=== PATIENT | male | born 2000 | race African-American/Black ===

== ENCOUNTER 2020-10-01 08:07 | Observation (INO) ==
[2020-10-01 09:07] LABS: Basophils # 0.1 10*3/uL (0.0-0.2); Basophils % 0.5 % (0.0-0.8); Eosinophils # 0.1 10*3/uL (0.0-0.87); Eosinophils % 0.5 % (0.00-10.9); Hematocrit 44.8 VOL% (42.0-52.0); Immature Granulocytes % 0.4 %; Immature Granulocytes Absolute 0.04 #; Lymphocytes % 19.3 % (21.2-54.2); Mean Corpuscular HGB Conc 33.5 GM/DL (32-36); Mean Corpuscular Volume 93.9 FL (87-102); Mean Platelet Volume 10.4 FL (9.6-12.0); Monocytes % 11.3 % (1.7-12.7); Platelet Count 222 T/CUMM (130-400); Red Blood Count 4.77 MC/CUMM (3.8-5.5); Red Cell Distribution Width 13.4 % (9.3-17.3); White Blood Count 10.3 T/CUMM (4-12)
[2020-10-01 09:34] LABS: Alanine Aminotransferase 44 U/L (16-61); Albumin 3.1 G/DL (3.4-5.0); Alkaline Phosphatase 43 U/L (45-117); Aspartate Amino Transferase 44 U/L (0-37); Blood Urea Nitrogen 8 MG/DL (7-18); Calcium 9.1 MG/DL (8.5-10.1); Carbon Dioxide 26 MMOL/L (21-32); Estimated Glom Filtration Rate 214 ML/MIN; Glucose 93 MG/DL (74-106); Osmolality,Calculated 267.1 MOS/KG (273-304); Potassium 3.6 MMOL/L (3.5-5.1); Sodium 135 MMOL/L (136-145); Total Protein 7.6 G/DL (6.4-8.2)
[2020-10-01 09:44] LABS: Bilirubin,Urine Negative (Negative); Blood, Urine Large mg/dL (Negative); Glucose,Urine (UA) Negative (Negative); Ketones,Urine Negative (Negative); Mucus,Urine Few /LPF (Occasional); Nitrite,Urine Negative (Negative); Protein,Urine 100 MG/DL; RBC,Urine 628 /HPF (0-4); Squamous Epithelial Cell,Urine Occasional /HPF (0-10); Urine Appearance CLEAR (Clear); Urine Color Amber (Yellow); Urine Specific Gravity 1.056 (1.001-1.035)
[2020-10-01 09:49] LABS: Band Neutrophils 3 % (0-10); Lymphocytes 21 % (20-55); Segmented Neutrophils 62 % (50-85); Total Cells Counted 100
[2020-10-01 09:50] LABS: Hypochromasia 1+; Microcytosis 1+; Platelet Estimate Normal
[2020-10-01 09:51] LABS: Atypical Lymphocytes Few
[2020-10-01 09:53] LABS: Barbiturates Screen,Urine Negative (Negative); Benzodiazepines Screen,Urine Negative (Negative); Cannabinoid Screen,Urine Positive (Negative); Opiate Screen,Urine Negative (Negative); Phencyclidine Screen,Urine Negative (Negative)
[2020-10-01] MEDS ORDERED: ONDANSETRON 4 MG/2 ML VIAL IV PRN (13:44)
[2020-10-01] MEDS ORDERED: ACETAMINOPHEN 325 MG TABLET PO PRN (13:44)
[2020-10-01] MEDS ORDERED: HYDROmorphone 2 MG/1 ML VIAL IV PRN ×2 (13:45)
[2020-10-01] MEDS ORDERED: BISACODYL 5 MG TABLET PO PRN (13:45)
[2020-10-01] MEDS ORDERED: KETOROLAC 15 MG/1 ML VIAL IV PRN (13:45)
[2020-10-01] MEDS ORDERED: cefTRIAXone 1,000 MG VIAL ONE (13:58)
[2020-10-01] MEDS ORDERED: SODIUM CHLORIDE 0.9% 100 ML IV ONE (13:59)
[2020-10-01] MEDS ORDERED: LACTATED RINGERS 1,000 ML IV SCH (14:00)
[2020-10-01] MEDS: cefTRIAXone 1,000 MG in SODIUM CHLORIDE 0.9% 100 ML IV SCH ×2 (14:24→21:58)
[2020-10-01] MEDS: LACTATED RINGERS 1,000 ML IV SCH (14:24)
[2020-10-01 14:42] LABS: Hematocrit 45.9 VOL% (42.0-52.0); Hemoglobin 15.1 GM/DL (14.0-18.0)
[2020-10-01] MEDS: ALBUTEROL/IPRATROPIUM 3 ML NEB RESP TX SCH (20:14)
[2020-10-01 20:21] LABS: Hematocrit 39.8 VOL% (42.0-52.0); Hemoglobin 13.2 GM/DL (14.0-18.0)
[2020-10-02] MEDS: LACTATED RINGERS 1,000 ML IV SCH (00:02)
[2020-10-02] MEDS: ALBUTEROL/IPRATROPIUM 3 ML NEB RESP TX SCH ×2 (01:00→07:45)
[2020-10-02 02:36] LABS: Hematocrit 40.4 VOL% (42.0-52.0); Hemoglobin 13.6 GM/DL (14.0-18.0)
[2020-10-02 03:07] LABS: Albumin 2.6 G/DL (3.4-5.0); Bilirubin,Total 0.4 MG/DL (0.20-1.00); Calcium 8.4 MG/DL (8.5-10.1); Osmolality,Calculated 272.7 MOS/KG (273-304); Potassium 3.4 MMOL/L (3.5-5.1); Total Protein 6.9 G/DL (6.4-8.2)
[2020-10-02] MEDS: cefTRIAXone 1,000 MG in SODIUM CHLORIDE 0.9% 100 ML IV SCH (05:26)
[2020-10-02 08:08] LABS: Bilirubin,Urine Negative (Negative); Blood, Urine Large mg/dL (Negative); Glucose,Urine (UA) Negative (Negative); Ketones,Urine Negative (Negative); Mucus,Urine Occasional /LPF (Occasional); Nitrite,Urine Negative (Negative); Protein,Urine Negative; RBC,Urine 61 /HPF (0-4); Squamous Epithelial Cell,Urine Occasional /HPF (0-10); Urine Appearance CLEAR (Clear); Urine Color Yellow (Yellow); Urine Specific Gravity 1.008 (1.001-1.035)
[2020-10-02 08:47] LABS: Hematocrit 41.1 VOL% (42.0-52.0); Hemoglobin 13.5 GM/DL (14.0-18.0)
[2020-10-02] MEDS ORDERED: PANTOPRAZOLE 40 MG TABLET PO SCH (09:00)
[2020-10-02 09:17] VITALS: BP 133/90
== END 2020-10-02 10:46 | disposition home or self-care (01) ==
LOC: N.EDINP 08:07 → N.ED 08:07 → N.OB 16:23
PROVIDERS: ADMIT Surgery; ATTEND Surgery